=== PATIENT | male | born 1985 | race Caucasian/White ===

== ENCOUNTER 2017-01-26 00:02 | Emergency (ER) | payer OTHER ==
[2017-01-26] MEDS ORDERED: Ketorolac Tromethamine 30 MG/ML VIAL ONE (00:34)
[2017-01-26] MEDS ORDERED: Morphine 4 MG/ML Carpuject ONE (00:34)
[2017-01-26 00:37] LABS: Bilirubin Negative (Negative); Blood, Urine Negative (Negative); Glucose, Urine (Dipstick) Negative (Negative); Ketone, Urine Negative (Negative); Nitrite Negative (Negative); Protein, Urine (Dipstick) 30 mg/dL (Neg-Trace); Urobilinogen 0.2 mg/dL (0.2-1.0)
[2017-01-26 00:46] LABS: Bacteria/HPF None Seen HPF (None Seen); Hyaline Casts/LPF NONE SEEN LPF (0-3 Hyaline); RBC/HPF 0-3 HPF (0-3); Squamous Epithelial 0-3 HPF (0-3); WBC/HPF 0-3 HPF (0-3)
[2017-01-26] MEDS ORDERED: HYDROcodone/Acetaminophen 5/325 mg Tablet ONE (01:11)
== END 2017-01-26 01:59 | disposition home or self-care (01) ==
LOC: SCSER 00:02
DX: N23 Unspecified renal colic (principal); K58.9 Irritable bowel syndrome, unspecified; Z87.442 Personal history of urinary calculi
CPT/HCPCS: 81003; 81015; 96361; 96374; 96375; J1885; J2270

== ENCOUNTER 2017-03-24 16:07 | Emergency (ER) | payer OTHER | END 2017-03-24 17:18 | disposition home or self-care (01) | LOC: SCSER 16:07 | DX: J32.9 Chronic sinusitis, unspecified (principal); Z79.899 Other long term (current) drug therapy | CPT/HCPCS: 99283 ==

== ENCOUNTER 2017-03-31 23:31 | Emergency (ER) | payer OTHER ==
[2017-03-31 23:52] LABS: Bilirubin Negative (Negative); Blood, Urine Trace (Negative); Clarity Clear (Clear); Glucose, Urine (Dipstick) Negative (Negative); Leukocyte Negative (Negative); Nitrite Negative (Negative); Protein, Urine (Dipstick) 100 mg/dL (Neg-Trace); Urobilinogen 0.2 mg/dL (0.2-1.0)
[2017-03-31 23:53] LABS: Specific Gravity, Urine 1.037 (1.002-1.036)
[2017-03-31 23:55] LABS: Bacteria/HPF None Seen HPF (None Seen); Hyaline Casts/LPF 0-3 HYALINE CAST LPF (0-3 Hyaline); RBC/HPF 0-3 HPF (0-3); Squamous Epithelial 0-3 HPF (0-3); WBC/HPF 0-3 HPF (0-3)
[2017-04-01] MEDS ORDERED: Morphine 4 MG/ML Carpuject ONE (00:16)
[2017-04-01 00:35] LABS: ALT (SGPT) 38 U/L (8-55); AST (SGOT) 19 U/L (5-34); Anion Gap 14 mmol/L (10-20); BUN (Urea Nitrogen) 13 mg/dL (8.9-20.6); Bilirubin, Total 0.2 mg/dL (0.2-1.2); Calc. Creatinine Clearance 0 mL/min (70-130); Calcium 9.6 mg/dL (7.8-10.44); Carbon Dioxide 26 mmol/L (22-29); Chloride 106 mmol/L (98-107); Estimated GFR-MDRD Greater than 90; Globulin 3.3 g/dL (2.4-3.5); Glucose 113 mg/dL (70-105); Lipase 32 U/L (8-78); Potassium 3.6 mmol/L (3.5-5.1); Protein, Total 7.3 g/dL (6.0-8.3); Sodium 142 mmol/L (136-145)
[2017-04-01 00:36] LABS: #Basophils 0.1 thou/uL (0.0-0.2); #Eosinphils 0.3 thou/uL (0.0-0.7); #Lymphocytes 2.7 thou/uL (1.20-3.40); #Monocytes 0.8 thou/uL (0.11-0.59); #Neutrophils 5.6 thou/uL (1.40-6.50); %Basophils 1.2 % (0.0-1.0); %Eosinophils 3.5 % (0.0-10.0); %Lymphocytes 28.5 % (21.0-51.0); %Monocytes 7.9 % (0.0-10.0); %Neutrophils 59.1 % (42.0-75.0); Hemoglobin 13.1 g/dL (14.0-18.0); Mean Corpuscular HGB CONC 32.2 g/dL (32.0-36.0); Mean Corpuscular Hemoglobin 25.9 pg (27.0-31.0); Mean Corpuscular Volume 80.5 fl (80.0-94.0); Mean Platelet Volume 10.8 fL (7.4-10.4); Platelet Count 245 thou/uL (130-400); RBC Distribution Width 14.9 % (11.5-14.5); Red Blood Cell (RBC) Count 5.04 mill/uL (4.70-6.10); White Blood Cell (WBC) Count 9.5 thou/uL (4.8-10.8)
[2017-04-01 03:11] LABS: Alkaline Phosphatase 72 U/L (40-150)
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
== END 2017-04-01 01:34 | disposition home or self-care (01) ==
LOC: SCSER 23:31
DX: M54.9 Dorsalgia, unspecified (principal)
CPT/HCPCS: 74176; 80053; 81003; 81015; 83690; 85025; 96361; 96374; J2270

== ENCOUNTER 2017-04-03 21:06 | Emergency (ER) | payer OTHER ==
[2017-04-03 21:57] LABS: #Basophils 0.1 thou/uL (0.0-0.2); #Eosinphils 0.3 thou/uL (0.0-0.7); #Lymphocytes 3.1 thou/uL (1.20-3.40); #Monocytes 0.6 thou/uL (0.11-0.59); %Eosinophils 2.7 % (0.0-10.0); %Lymphocytes 25.4 % (21.0-51.0); %Monocytes 5.1 % (0.0-10.0); %Neutrophils 65.9 % (42.0-75.0); Mean Corpuscular HGB CONC 31.8 g/dL (32.0-36.0); Mean Corpuscular Hemoglobin 25.8 pg (27.0-31.0); Mean Corpuscular Volume 81.2 fl (80.0-94.0); Mean Platelet Volume 10.9 fL (7.4-10.4); Platelet Count 262 thou/uL (130-400); RBC Distribution Width 14.8 % (11.5-14.5); Red Blood Cell (RBC) Count 5.03 mill/uL (4.70-6.10); White Blood Cell (WBC) Count 12.1 thou/uL (4.8-10.8)
[2017-04-03 22:13] LABS: ALT (SGPT) 41 U/L (8-55); AST (SGOT) 22 U/L (5-34); Albumin 4.1 g/dL (3.5-5.0); Alkaline Phosphatase 70 U/L (40-150); Anion Gap 14 mmol/L (10-20); BUN (Urea Nitrogen) 11 mg/dL (8.9-20.6); Bilirubin, Total 0.2 mg/dL (0.2-1.2); Calc. Creatinine Clearance 0 mL/min (70-130); Calcium 9.7 mg/dL (7.8-10.44); Carbon Dioxide 27 mmol/L (22-29); Chloride 103 mmol/L (98-107); Estimated GFR-MDRD 82; Globulin 3.4 g/dL (2.4-3.5); Glucose 138 mg/dL (70-105); Lipase 35 U/L (8-78); Potassium 3.5 mmol/L (3.5-5.1); Protein, Total 7.5 g/dL (6.0-8.3); Sodium 140 mmol/L (136-145)
--- NOTE | 2017-04-03 23:19 | ULT ---
GALLBLADDER ULTRASOUND: 04/03/17 HISTORY: Right upper quadrant pain. Real time imaging of the right upper quadrant demonstrates a contracted appearing gallbladder without any definite signs of stones. Common duct is 4 mm. Technologist reports a negative ultrasound Friedman 's sign. There are fatty changes of the liver which measures 17 cm in length. The pancreas is obscured. Right kidney is normal in size and not obstructed. There is a small subcentimeter cyst present in the mid p ole region. IMPRESSION: 1. Contracted gallbladder. 2. Fatty changes of the liver. POS: [facility]
== END 2017-04-03 23:32 | disposition home or self-care (01) ==
LOC: SCSER 21:06
DX: K76.0 Fatty (change of) liver, not elsewhere classified (principal); M19.90 Unspecified osteoarthritis, unspecified site; Z87.442 Personal history of urinary calculi; Z79.899 Other long term (current) drug therapy
CPT/HCPCS: 76705; 80053; 83690; 85025; 87086

== ENCOUNTER 2017-04-10 14:25 | Outpatient (CLI) | payer OTHER ==
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
== END 2017-04-10 14:26 | disposition home or self-care (01) ==
LOC: SCSRAD 14:25
PROVIDERS: ATTEND Family Medicine
DX: M54.5 Low back pain (principal)
CPT/HCPCS: 72100

== ENCOUNTER 2017-05-02 17:27 | Emergency (ER) | payer OTHER ==
[2017-05-02] MEDS ORDERED: Ketorolac Tromethamine 30 MG/ML VIAL ONE (18:25)
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
== END 2017-05-02 18:50 | disposition home or self-care (01) ==
LOC: SCSER 17:27
DX: S16.1XXA Strain of muscle, fascia and tendon at neck level, initial encounter (principal); K58.9 Irritable bowel syndrome, unspecified; M19.90 Unspecified osteoarthritis, unspecified site; Z87.442 Personal history of urinary calculi; V43.92XA Unspecified car occupant injured in collision with other type car in traffic accident, initial encounter
CPT/HCPCS: 72125; 96372; J1885

== ENCOUNTER 2017-07-30 15:31 | Emergency (ER) | payer OTHER ==
[2017-07-30 16:07] LABS: Bilirubin Negative (Negative); Blood, Urine Negative (Negative); Clarity Clear (Clear); Glucose, Urine (Dipstick) Negative (Negative); Leukocyte Negative (Negative); Nitrite Negative (Negative); Protein, Urine (Dipstick) 100 mg/dL (Neg-Trace); Specific Gravity, Urine 1.025 (1.005-1.030); Urobilinogen 0.2 mg/dL (0.2-1.0); pH, Urine 6.5 (5.0-9.0)
[2017-07-30 16:14] LABS: RBC/HPF 0-3 HPF (0-3); Squamous Epithelial 0-3 HPF (0-3)
[2017-07-30 16:15] LABS: Bacteria/HPF Rare-Few HPF (None Seen); Hyaline Casts/LPF 0-3 HYALINE CAST LPF (0-3 Hyaline)
[2017-07-30] MEDS ORDERED: Ketorolac Tromethamine 30 MG/ML VIAL ONE (16:18)
[2017-07-30 16:33] LABS: #Basophils 0.1 thou/uL (0.0-0.2); #Eosinphils 0.2 thou/uL (0.0-0.7); #Lymphocytes 2.7 thou/uL (1.20-3.40); #Monocytes 0.6 thou/uL (0.11-0.59); #Neutrophils 4.6 thou/uL (1.40-6.50); %Basophils 1.2 % (0.0-1.0); %Eosinophils 2.6 % (0.0-10.0); %Lymphocytes 32.8 % (21.0-51.0); %Monocytes 6.8 % (0.0-10.0); %Neutrophils 56.6 % (42.0-75.0); Hemoglobin 15.5 g/dL (14.0-18.0); Mean Corpuscular HGB CONC 32.8 g/dL (32.0-36.0); Mean Corpuscular Hemoglobin 27.6 pg (27.0-31.0); Mean Corpuscular Volume 84.2 fl (80.0-94.0); Mean Platelet Volume 10.8 fL (7.4-10.4); Platelet Count 232 thou/uL (130-400); RBC Distribution Width 14.2 % (11.5-14.5); Red Blood Cell (RBC) Count 5.62 mill/uL (4.70-6.10); White Blood Cell (WBC) Count 8.2 thou/uL (4.8-10.8)
[2017-07-30 16:47] LABS: Anion Gap 17 mmol/L (10-20); BUN (Urea Nitrogen) 12 mg/dL (8.9-20.6); Calc. Creatinine Clearance 0 mL/min (70-130); Calcium 10.3 mg/dL (7.8-10.44); Carbon Dioxide 23 mmol/L (22-29); Chloride 103 mmol/L (98-107); Estimated GFR-MDRD Greater than 90; Glucose 92 mg/dL (70-105); Potassium 3.5 mmol/L (3.5-5.1); Sodium 139 mmol/L (136-145)
[2017-07-30 16:59] LABS: ALT (SGPT) 63 U/L (8-55); AST (SGOT) 31 U/L (5-34); Albumin 4.6 g/dL (3.5-5.0); Alkaline Phosphatase 71 U/L (40-150); Bilirubin, Direct 0.2 mg/dL (0.1-0.3); Bilirubin, Total 0.6 mg/dL (0.2-1.2); Lipase 34 U/L (8-78); Protein, Total 8.2 g/dL (6.0-8.3)
--- NOTE | 2017-07-30 17:39 | CT ---
ABDOMEN CT WITHOUT CONTRAST: PELVIS CT WITHOUT CONTRAST: HISTORY: Left flank pain. Back pain. Dysuria. COMPARISON: 10/06/2016 and 04/01/2017 TECHNIQUE: A CT of the abdomen and pelvis is performed without contrast. Coronal reformatted images are submitt ed for interpretation. FINDINGS; ABDOMEN: The lung bases are clear. The heart size is normal. No pericardia effusion. The visualiz ed aorta is normal in caliber. The gallbladder is unremarkable. Hepatic steatosis is noted. Evaluation of the solid organs is limited by lack of IV contrast. No so lid organ abnormality. No gastrohepatic, retrocrural, or periportal lymphadenopathy. No mesenteric mass, lymphadenopathy, free air, or free fluid. Limited evaluation of the solid organs due to lack of oral contrast. No evidence of bowel obstructio n. The ileocecal junction is normal. Normal caliber appendix. Fecal material in a nondistended, no ndilated colon. Scattered diverticulosis. No diverticulitis. Bilaterally, no nephrolithiasis or significant perinephric fat stranding. Subtle hypodensity in the right renal cortex is again noted. Previously noted punctate calcification in the right intrarenal c ollecting system is not appreciated. With regard to the right intrarenal and extrarenal collecting s ystem, no evidence of obstructive uropathy. With regard to the left intrarenal and extrarenal collec ting system, no evidence of obstructive uropathy. PELVIS: No mass, lymphadenopathy, free air, or free fluid. The urinary bladder is unremarkable. No lytic or blastic lesions in the osseous structures. IMPRESSION: 1. No evidence of obstructive uropathy. 2. Normal caliber appendix. POS: [facility]
== END 2017-07-30 17:21 | disposition home or self-care (01) ==
LOC: SCSER 15:31
DX: N30.00 Acute cystitis without hematuria (principal)
CPT/HCPCS: 74176; 80048; 80076; 81003; 81015; 83690; 85025; 96374; J1885

== ENCOUNTER 2017-08-24 09:30 | Emergency (ER) | payer OTHER ==
[2017-08-24 10:10] LABS: #Basophils 0.1 thou/uL (0.0-0.2); #Eosinphils 0.3 thou/uL (0.0-0.7); #Lymphocytes 2.6 thou/uL (1.20-3.40); #Monocytes 0.9 thou/uL (0.11-0.59); #Neutrophils 4.8 thou/uL (1.40-6.50); %Eosinophils 3.2 % (0.0-10.0); %Lymphocytes 29.9 % (21.0-51.0); %Monocytes 9.9 % (0.0-10.0); Hemoglobin 14.5 g/dL (14.0-18.0); Mean Corpuscular HGB CONC 32.5 g/dL (32.0-36.0); Mean Corpuscular Hemoglobin 28.7 pg (27.0-31.0); Mean Corpuscular Volume 88.2 fL (78.0-98.0); Platelet Count 223 thou/uL (130-400); Red Blood Cell (RBC) Count 5.05 mill/uL (4.70-6.10); White Blood Cell (WBC) Count 8.6 thou/uL (4.8-10.8)
[2017-08-24 10:12] LABS: Bilirubin Negative (Negative); Blood, Urine Negative (Negative); Clarity CLEAR (Clear); Glucose, Urine (Dipstick) Negative (Negative); Leukocyte Negative (Negative); Nitrite Negative (Negative); Protein, Urine (Dipstick) 100 mg/dL (Neg-Trace); Specific Gravity, Urine 1.023 (1.002-1.036); Urobilinogen 0.2 mg/dL (0.2-1.0); pH, Urine 5.5 (5.0-9.0)
[2017-08-24 10:16] LABS: BHCG - Serum Negative; Pregs Control Background? CLEAR/WHITE (CLR/WHITE); Pregs Control Bar Appear? YES (CONTROL BAR)
[2017-08-24 10:19] LABS: Bacteria/HPF None Seen HPF (None Seen); Hyaline Casts/LPF 0-3 HYALINE CAST LPF (0-3 Hyaline); Pathc Cast-AUWi Flag 0.29 (0-2.49); RBC/HPF 0-3 HPF (0-3); Squamous Epithelial None Seen HPF (0-3)
[2017-08-24 10:23] LABS: ALT (SGPT) 47 U/L (8-55); AST (SGOT) 24 U/L (5-34); Albumin 4.3 g/dL (3.5-5.0); Alkaline Phosphatase 70 U/L (40-150); Anion Gap 14 mmol/L (10-20); BUN (Urea Nitrogen) 12 mg/dL (8.9-20.6); Bilirubin, Total 0.2 mg/dL (0.2-1.2); Calc. Creatinine Clearance 0 mL/min (70-130); Calcium 9.8 mg/dL (7.8-10.44); Carbon Dioxide 25 mmol/L (22-29); Chloride 104 mmol/L (98-107); Estimated GFR-MDRD 79; Globulin 3.6 g/dL (2.4-3.5); Glucose 109 mg/dL (70-105); Potassium 3.7 mmol/L (3.5-5.1); Protein, Total 7.9 g/dL (6.0-8.3); Sodium 139 mmol/L (136-145)
== END 2017-08-24 12:12 | disposition home or self-care (01) ==
LOC: ERS 09:30
DX: R42 Dizziness and giddiness (principal); K58.9 Irritable bowel syndrome, unspecified; M19.90 Unspecified osteoarthritis, unspecified site; Z87.442 Personal history of urinary calculi; Z79.899 Other long term (current) drug therapy; N18.1 Chronic kidney disease, stage 1; R80.9 Proteinuria, unspecified
CPT/HCPCS: 36415; 80053; 81003; 81015; 82570; 83970; 84156; 84166; 84703; 85025; 87086; 93005

== ENCOUNTER 2017-10-14 03:30 | Emergency (ER) | payer OTHER | END 2017-10-14 04:42 | disposition home or self-care (01) | LOC: SCSER 03:30 | DX: K08.89 Other specified disorders of teeth and supporting structures (principal); M19.90 Unspecified osteoarthritis, unspecified site | CPT/HCPCS: 93005 ==

== ENCOUNTER 2017-11-16 22:13 | Emergency (ER) | payer OTHER ==
[2017-11-16] MEDS ORDERED: EPINEPHrine 1 MG/ML AMP ONE (22:24)
[2017-11-16] MEDS ORDERED: Water For Inject, Bacteriostat 30 ML ONE (22:25)
[2017-11-16] MEDS ORDERED: methylPREDNISolone Sod Succ/PF 125 MG/2 ML VIAL ONE (22:25)
[2017-11-16] MEDS ORDERED: diphenhydrAMINE 50 MG/ML VIAL ONE (22:25)
[2017-11-16] MEDS ORDERED: Famotidine/PF 20 mg/2ml Vial ONE (22:25)
== END 2017-11-16 23:48 | disposition home or self-care (01) ==
LOC: SCSER 22:13
DX: T78.40XA Allergy, unspecified, initial encounter (principal)
CPT/HCPCS: 96374; 96375; J0171; J1200; J2930; S0028

== ENCOUNTER 2018-01-28 17:57 | Emergency (ER) | payer OTHER ==
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
== END 2018-01-28 19:06 | disposition home or self-care (01) ==
LOC: SCSER 17:57
DX: M67.431 Ganglion, right wrist (principal); M19.90 Unspecified osteoarthritis, unspecified site; K58.9 Irritable bowel syndrome, unspecified; Z87.442 Personal history of urinary calculi; Z79.899 Other long term (current) drug therapy; W22.8XXA Striking against or struck by other objects, initial encounter

== ENCOUNTER 2018-03-20 15:30 | Emergency (ER) | payer OTHER ==
[2018-03-20 15:58] LABS: Bilirubin Negative (Negative); Blood, Urine Large (Negative); Clarity Slightly Cloudy (Clear); Glucose, Urine (Dipstick) Negative (Negative); Leukocyte Negative (Negative); Nitrite Negative (Negative); Protein, Urine (Dipstick) 100 mg/dL (Neg-Trace); Urobilinogen 0.2 mg/dL (0.2-1.0); pH, Urine 6.5 (5.0-9.0)
[2018-03-20 16:03] LABS: RBC/HPF 21-50 HPF (0-3); Squamous Epithelial 0-3 HPF (0-3); WBC/HPF 0-3 HPF (0-3)
[2018-03-20 16:04] LABS: Crystals/HPF 1+ AMORPH URATES HPF (Negative)
[2018-03-20 16:09] LABS: #Basophils 0.1 thou/uL (0.0-0.2); #Eosinphils 0.2 thou/uL (0.0-0.7); #Lymphocytes 2.4 thou/uL (1.20-3.40); #Monocytes 0.6 thou/uL (0.11-0.59); #Neutrophils 4.7 thou/uL (1.40-6.50); %Basophils 1.3 % (0.0-1.0); %Lymphocytes 29.9 % (21.0-51.0); %Monocytes 6.9 % (0.0-10.0); %Neutrophils 58.8 % (42.0-75.0); Hemoglobin 14.4 g/dL (14.0-18.0); Mean Corpuscular HGB CONC 32.6 g/dL (32.0-36.0); Mean Corpuscular Hemoglobin 29.5 pg (27.0-31.0); Mean Corpuscular Volume 90.6 fL (78.0-98.0); Platelet Count 193 thou/uL (130-400); RBC Distribution Width 13.7 % (11.5-14.5); Red Blood Cell (RBC) Count 4.87 mill/uL (4.70-6.10); White Blood Cell (WBC) Count 8.1 thou/uL (4.8-10.8)
[2018-03-20 16:23] LABS: ALT (SGPT) 61 U/L (8-55); AST (SGOT) 31 U/L (5-34); Alkaline Phosphatase 67 U/L (40-150); Anion Gap 13 mmol/L (10-20); BUN (Urea Nitrogen) 14 mg/dL (8.9-20.6); Bilirubin, Total 0.3 mg/dL (0.2-1.2); Calc. Creatinine Clearance 0 mL/min (70-130); Calcium 9.2 mg/dL (7.8-10.44); Carbon Dioxide 25 mmol/L (22-29); Chloride 104 mmol/L (98-107); Estimated GFR-MDRD Greater than 90; Globulin 3.2 g/dL (2.4-3.5); Glucose 96 mg/dL (70-105); Potassium 3.3 mmol/L (3.5-5.1); Protein, Total 7.2 g/dL (6.0-8.3); Sodium 139 mmol/L (136-145)
--- NOTE | 2018-03-20 17:26 | CT ---
CT ABDOMEN AND PELVIS NONCONTRAST 03/20/18 HISTORY: Left flank pain. COMPARISON: 04/01/17. FINDINGS: Each renal collecting system, ureter, and the urinary bladder are decompressed without stone evident. Lack of contrast limits evaluation for other abnormalities. Liver is diffusely hypodense. Occasional diverticula arise from the colon without adjacent inflammation. IMPRESSION: No CT evidence of urinary tract obstruction or calcification. Hepatic steatosis. Mild diverticulosis. No evidence of diverticulitis. POS: [facility]
== END 2018-03-20 16:43 | disposition home or self-care (01) ==
LOC: SCSER 15:30
DX: M54.5 Low back pain (principal); R31.9 Hematuria, unspecified; K58.9 Irritable bowel syndrome, unspecified; M19.90 Unspecified osteoarthritis, unspecified site; Z87.442 Personal history of urinary calculi; Z79.899 Other long term (current) drug therapy
CPT/HCPCS: 74176; 80053; 81003; 81015; 85025

== ENCOUNTER 2018-05-01 18:34 | Emergency (ER) | payer OTHER | END 2018-05-01 19:09 | disposition home or self-care (01) | LOC: SCSER 18:34 | DX: M54.5 Low back pain (principal); G89.29 Other chronic pain; K58.9 Irritable bowel syndrome, unspecified; M19.90 Unspecified osteoarthritis, unspecified site; Z87.442 Personal history of urinary calculi; Z79.899 Other long term (current) drug therapy | CPT/HCPCS: 99281 ==

== ENCOUNTER 2018-05-02 13:06 | Outpatient (CLI) | payer OTHER ==
--- NOTE | 2018-05-02 14:28 | ULT ---
RENAL ULTRASOUND: Comparison: 02-14-06 History: History of kidney stones. Technique: Multiplanar grayscale and color doppler images were obtained in a bilateral renal ultrasou nd. FINDINGS: There is an echogenic nonshadowing structure in the right kidney measuring 1.1 cm in greatest dimensi on. There is also an echogenic structure in the left kidney measuring 7 mm in greatest dimension. The se could represent nonobstructing pneumo calcifications. There is no evidence of hydronephrosis on ei ther side. The kidneys measure 11.8 and 12.7 cm in length respectively. Limited visualization of the urinary bladder is unremarkable. IMPRESSION: Bilateral nonobstructing kidney stones. POS: [facility]
== END 2018-05-02 13:07 | disposition home or self-care (01) ==
LOC: SCSULT 13:06
PROVIDERS: ATTEND Urology
DX: N20.0 Calculus of kidney (principal)
CPT/HCPCS: 76770

== ENCOUNTER 2018-05-17 10:25 | Outpatient (CLI) | payer OTHER ==
--- NOTE | 2018-05-17 12:23 | RAD ---
KUB: HISTORY: Renal calculi. COMPARISON: A 05/09/2016 examination as well as a 03/20/2018 CT study. FINDINGS: The bowel gas pattern appears nonobstructive. I do not identify any definite renal calculi. There a re calcifications in the pelvis which are felt to represent phleboliths. IMPRESSION: No definite renal calculi. POS: [facility]
== END 2018-05-17 10:26 | disposition home or self-care (01) ==
LOC: RAD 10:25
PROVIDERS: ATTEND Urology
DX: N20.0 Calculus of kidney (principal)
CPT/HCPCS: 74018

== ENCOUNTER 2018-12-06 06:07 | Emergency (ER) | payer OTHER ==
[2018-12-06] MEDS ORDERED: Ketorolac Tromethamine 30 MG/ML VIAL ONE (06:24)
[2018-12-06 06:35] LABS: #Basophils 0.1 thou/uL (0.0-0.2); #Eosinphils 0.3 thou/uL (0.0-0.7); #Monocytes 0.9 thou/uL (0.11-0.59); #Neutrophils 6.8 thou/uL (1.40-6.50); %Basophils 1.3 % (0.0-1.0); %Eosinophils 2.3 % (0.0-10.0); %Lymphocytes 27.2 % (21.0-51.0); %Monocytes 7.8 % (0.0-10.0); %Neutrophils 61.4 % (42.0-75.0); Hemoglobin 15.4 g/dL (14.0-18.0); Mean Corpuscular HGB CONC 31.6 g/dL (32.0-36.0); Mean Corpuscular Hemoglobin 26.7 pg (27.0-31.0); Mean Corpuscular Volume 84.4 fL (78.0-98.0); Mean Platelet Volume 10.4 fL (7.4-10.4); Platelet Count 230 thou/uL (130-400); RBC Distribution Width 15.8 % (11.5-14.5); Red Blood Cell (RBC) Count 5.75 mill/uL (4.70-6.10)
[2018-12-06 06:40] LABS: Bilirubin Moderate (Negative); Blood, Urine Negative (Negative); Clarity Clear (Clear); Glucose, Urine (Dipstick) Negative (Negative); Leukocyte Negative (Negative); Nitrite Negative (Negative); Protein, Urine (Dipstick) 100 mg/dL (Neg-Trace); Urobilinogen 0.2 mg/dL (Less than 2)
[2018-12-06 06:45] LABS: ALT (SGPT) 51 U/L (8-55); AST (SGOT) 25 U/L (5-34); Albumin 4.5 g/dL (3.5-5.0); Alkaline Phosphatase 65 U/L (40-110); Anion Gap 16 mmol/L (10-20); BUN (Urea Nitrogen) 11 mg/dL (8.9-20.6); Bilirubin, Total 0.6 mg/dL (0.2-1.2); Calc. Creatinine Clearance 0 mL/min (70-130); Calcium 9.9 mg/dL (7.8-10.44); Carbon Dioxide 28 mmol/L (22-29); Chloride 101 mmol/L (98-107); Estimated GFR-MDRD 65; Globulin 3.4 g/dL (2.4-3.5); Glucose 98 mg/dL (70-105); Lipase 44 U/L (8-78); Potassium 3.1 mmol/L (3.5-5.1); Protein, Total 7.9 g/dL (6.0-8.3); Sodium 142 mmol/L (136-145)
[2018-12-06 06:49] LABS: Bacteria/HPF None Seen HPF (None Seen); RBC/HPF None Seen HPF (0-3); Squamous Epithelial None Seen HPF (0-3); WBC/HPF None Seen HPF (0-3)
== END 2018-12-06 07:13 | disposition home or self-care (01) ==
LOC: SCSER 06:07
DX: R10.9 Unspecified abdominal pain (principal); E78.5 Hyperlipidemia, unspecified; I10 Essential (primary) hypertension; Z79.899 Other long term (current) drug therapy
CPT/HCPCS: 74177; 76700; 80053; 81003; 81015; 83605; 83690; 85025; 96360; 96374; J1885; Q9967

== ENCOUNTER 2018-12-06 13:42 | Emergency (ER) | payer OTHER ==
[~2018-12-06 13:42] MED LIST: Iopamidol 300 61% 100 ML VIAL FS ONE
[2018-12-06 14:55] LABS: Mean Corpuscular HGB CONC 32.4 g/dL (32.0-36.0); Mean Corpuscular Hemoglobin 26.9 pg (27.0-31.0); Mean Platelet Volume 12.2 fL (7.4-10.4); Platelet Count 225 thou/uL (130-400); RBC Distribution Width 15.7 % (11.5-14.5); Red Blood Cell (RBC) Count 5.58 mill/uL (4.70-6.10); White Blood Cell (WBC) Count 11.2 thou/uL (4.8-10.8)
[2018-12-06 15:04] LABS: ALT (SGPT) 47 U/L (8-55); AST (SGOT) 24 U/L (5-34); Albumin 4.3 g/dL (3.5-5.0); Alkaline Phosphatase 65 U/L (40-110); Anion Gap 15 mmol/L (10-20); BUN (Urea Nitrogen) 14 mg/dL (8.9-20.6); Bilirubin, Total 0.4 mg/dL (0.2-1.2); Calc. Creatinine Clearance 0 mL/min (70-130); Carbon Dioxide 26 mmol/L (22-29); Chloride 103 mmol/L (98-107); Estimated GFR-MDRD 67; Globulin 3.2 g/dL (2.4-3.5); Glucose 105 mg/dL (70-105); Lipase 37 U/L (8-78); Protein, Total 7.5 g/dL (6.0-8.3); Sodium 141 mmol/L (136-145)
[2018-12-06 15:06] LABS: #Basophils 0.1 thou/uL (0.0-0.2); #Eosinphils 0.2 thou/uL (0.0-0.7); #Lymphocytes 2.7 thou/uL (1.20-3.40); #Monocytes 0.8 thou/uL (0.11-0.59); #Neutrophils 7.4 thou/uL (1.40-6.50); %Basophils 1.1 % (0.0-1.0); %Lymphocytes 23.7 % (21.0-51.0); %Monocytes 7.3 % (0.0-10.0); %Neutrophils 65.9 % (42.0-75.0); Large Platelets SLIGHT; MDiff Complete? YES; Platelet Morphology Comment Appears Adequate; RBC Morphology Normal
[2018-12-06 15:08] LABS: Potassium 2.9 mmol/L (3.5-5.1)
--- NOTE | 2018-12-06 16:17 | ULT ---
ABDOMINAL ULTRASOUND HISTORY: Right lower quadrant abdominal pain. FINDINGS: Liver: Increased echogenicity and coarsened echotexture most suggestive of diffuse fatty infiltration . This does limit evaluation of the hepatic parenchyma, no definite focal hepatic lesion is seen. Gallbladder: Contracted and not well evaluated on this exam. Gallbladder calculi could not be exclude d based on this exam. Common duct: Common duct is normal in caliber measuring 4 mm in diameter. Pancreas: The limited visualized pancreas demonstrates a normal sonographic appearance. IVC: Limited visualized IVC has a normal sonographic appearance. Aorta: Normal in caliber where visualized. Spleen: Within normal limits. Kidneys: The right kidney measures 11.5 cm in length. A subcentimeter hypoechoic lesion is seen in th e midportion right kidney which is difficult to characterize but probably represents a small cyst. Hypodense lesion was seen in this region on prior CT scan examination in 2017. The left kidney demons trates a normal sonographic appearance and measures 13.3 cm in length. There is no hydronephrosis seen bilaterally. Limited sonographic evaluation of the right lower quadrant was performed. The appendix is not definit pradeep visualized. No fluid is seen in the right lower quadrant. IMPRESSION: 1. Gallbladder is contracted and not evaluated on this exam. Follow-up ultrasound examination after a n appropriate time period of fasting can be performed if there is concern for gallbladder pathology. The common duct is normal in caliber. 2. Diffuse fatty infiltration of the liver limiting evaluation of the hepatic parenchyma. 3. Hypoechoic subcentimeter lesion midportion right kidney difficult to definitively characterize due to small size but likely represents a small cyst. Small hypoechoic lesion was seen in this region on prior noncontrast CT abdomen 2017. 4. The appendix is not definitely visualized in the right lower quadrant. No fluid is seen in the rig ht lower quadrant. Appendicitis cannot be excluded based on this exam.
[2018-12-06 16:57] LABS: Bilirubin Small (Negative); Blood, Urine Negative (Negative); Clarity Hazy (Clear); Glucose, Urine (Dipstick) Negative (Negative); Leukocyte Negative (Negative); Nitrite Negative (Negative); Protein, Urine (Dipstick) 30 mg/dL (Neg-Trace); Urobilinogen 0.2 mg/dL (Less than 2)
--- NOTE | 2018-12-06 17:35 | CT ---
CT CHEST, ABDOMEN AND PELVIS WITH IV CONTRAST: 12/06/18 Oral contrast was administered. Multiplanar reconstruction. INDICATIONS: Right lower quadrant abdominal pain. Lung bases clear. Liver, spleen and pancreas unremarkable. Stomach and duodenum unremarkable. Adrenal glands normal. Kidneys unremarkable. A small cyst in the mid pole of the right kidney is noted and stable from prior exam of 03/20/18. No hydronephrosis. No evidence of urinary tract calculus or obstruction. Urinary bladder is contracted and not well evaluated. Small bowel loops appear normal. Appendix appears normal with no evidence of inflammation. Colon is unremarkable. Aorta normal caliber . No adenopathy. Review of soft tissues shows mild prominence of the right inguinal ring. This is filled with mesenter ic fat and does suggest a small inguinal hernia on the right. IMPRESSION: No acute abnormality identified. POS: [facility]
== END 2018-12-06 18:48 | disposition home or self-care (01) ==
LOC: SCSER 13:42
DX: K40.90 Unilateral inguinal hernia, without obstruction or gangrene, not specified as recurrent (principal); E87.6 Hypokalemia; E78.5 Hyperlipidemia, unspecified; I10 Essential (primary) hypertension; Z79.899 Other long term (current) drug therapy
CPT/HCPCS: 74177; 76700; 83605; 83690

== ENCOUNTER 2019-01-07 12:44 | Outpatient (CLI) | payer OTHER ==
--- NOTE | 2019-01-07 13:46 | MRI ---
MRI Lumbar Spine WO Con HISTORY: Low back pain. COMPARISON: MRI study of 05/19/2010. FINDINGS: The vertebral bodies are normal in height. Disc desiccation changes are seen at L3-4, L4-5 and L5-S1. There is no significant periaortic adenopathy. The visualized portions of the kidneys appear unremarkable. T12-L1: Unremarkable L1-2: Unremarkable L2-3: Unremarkable. L3-4 there is a disc bulge at this level there is a small central annular disc tear present no signif icant canal or foraminal stenosis. L4-5 there is a right paracentral annular disc tear and disc protrusion these changes indent the thec al sac. In the conjunction with facet and ligamentous hypertrophic changes cause a moderate degree of canal narrowing. There is no significant foraminal stenosis. The right foramen is borderline narro wed. L5-S1: A central annular tear is present at this level the canal is borderline in what appears to mitch ewhat congenitally narrowed canal. There are degenerative facet changes at this level. IMPRESSION: 1. Small central annular disc tear at L3-4. 2. Right paracentral annular tear and disc protrusion at L4-5 with a mild to moderate degree of canal stenosis and borderline right foraminal narrowing. 3. Central annular disc tear at L5-S1.
--- NOTE | 2019-01-07 13:49 | RAD ---
XR Lumbar Spine 2 Or 3 View HISTORY: Low back pain COMPARISON: 04/10/2017 study FINDINGS: The vertebral bodies maintain normal height. Degenerative osteophytic changes in the lower lumbar spine is seen without significant disc narrowing. Mild degenerative facet changes of the lower lumbar spine are present. IMPRESSION: Mild arthritic changes of the spine.
== END 2019-01-07 12:45 | disposition home or self-care (01) ==
LOC: BICMRI 12:44
PROVIDERS: ATTEND Family Medicine
DX: M47.816 Spondylosis without myelopathy or radiculopathy, lumbar region (principal); M51.26 Other intervertebral disc displacement, lumbar region; M48.061 Spinal stenosis, lumbar region without neurogenic claudication
CPT/HCPCS: 72100; 72148

== ENCOUNTER 2019-01-17 06:50 | Outpatient (CLI) | payer OTHER ==
[2019-01-17 12:51] LABS: #Basophils 0.1 thou/uL (0.0-0.2); #Eosinphils 0.2 thou/uL (0.0-0.7); #Lymphocytes 2.9 thou/uL (1.20-3.40); #Monocytes 0.6 thou/uL (0.11-0.59); %Eosinophils 2.3 % (0.0-10.0); %Lymphocytes 33.1 % (21.0-51.0); %Monocytes 7.3 % (0.0-10.0); %Neutrophils 56.4 % (42.0-75.0); Hemoglobin 14.8 g/dL (14.0-18.0); Mean Corpuscular HGB CONC 32.7 g/dL (32.0-36.0); Mean Corpuscular Hemoglobin 28.2 pg (27.0-31.0); Mean Corpuscular Volume 86.3 fL (78.0-98.0); Mean Platelet Volume 10.2 fL (7.4-10.4); Platelet Count 206 thou/uL (130-400); RBC Distribution Width 14.8 % (11.5-14.5); Red Blood Cell (RBC) Count 5.24 mill/uL (4.70-6.10); White Blood Cell (WBC) Count 8.8 thou/uL (4.8-10.8)
[2019-01-17 13:09] LABS: Anion Gap 9 mmol/L (10-20); BUN (Urea Nitrogen) 12 mg/dL (8.9-20.6); Calc. Creatinine Clearance 0 mL/min (70-130); Calcium 9.3 mg/dL (7.8-10.44); Carbon Dioxide 28 mmol/L (22-29); Chloride 107 mmol/L (98-107); Estimated GFR-MDRD 77; Glucose 88 mg/dL (70-105); Potassium 4.2 mmol/L (3.5-5.1); Sodium 140 mmol/L (136-145)
--- NOTE | 2019-01-19 16:24 | EKG ---
Test Reason : Blood Pressure : / mmHG Vent. Rate : 069 BPM Atrial Rate : 069 BPM P-R Int : 160 ms QRS Dur : 080 ms QT Int : 370 ms P-R-T Axes : 043 088 041 degrees QTc Int : 396 ms Normal sinus rhythm Normal ECG When compared with ECG of 14-OCT-2017 04:15, No significant change was found Confirmed by DR. Serafin YEBOAH ([id number]) on 01/19/2019 4:23:49 PM Referred By: MAUREEN Confirmed By:DR. Serafin YEBOAH
== END 2019-01-17 06:51 | disposition home or self-care (01) ==
LOC: LABBT 06:50
PROVIDERS: ATTEND Specialist
DX: Z01.818 Encounter for other preprocedural examination (principal); K40.90 Unilateral inguinal hernia, without obstruction or gangrene, not specified as recurrent
CPT/HCPCS: 80048; 85025; 93005; 93010

== ENCOUNTER 2019-01-24 05:36 | Day surgery (SDC) | payer OTHER ==
[2019-01-17 12:08] VITALS: BMI 34.4
--- NOTE | 2019-01-20 10:39 | HP ---
HISTORY OF PRESENT ILLNESS: Miguel Ángel Montenegro is a 33-year-old male patient, who has a history of leukemia, in remission. He was told he had a right inguinal hernia on exam in 2009; however, it was asymptomatic since that time. He is having discomfort in his right groin. He recently presented to the emergency room at [facility] in 06/2018 for discomfort in his right groin. CAT scan revealed a small right inguinal hernia, but no other acute findings. Abdominal ultrasound was unremarkable. He has had a past history of nephrolithiasis. Plan is for robotic mesh repair of right inguinal hernia as an outpatient. He understands risks and benefits of procedure and consents. He understand risks of infection, bleeding, reoperation, and chronic pain. MEDICATIONS: 1. Coral p.r.n. 2. Valium. 3. Tylenol p.r.n. 4. Nasonex. 5. Nexium. 6. Propranolol 10 mg a day. 7. Hydrochlorothiazide daily. PAST MEDICAL HISTORY: 1. Acute lymphocytic leukemia in 1991, status post chemo and radiation therapy. 2. He is on disability for learning disability. 3. ADHD. 4. Multiple kidney stones. 5. IBS. 6. GERD. 7. Nephrolithiasis. PAST SURGICAL HISTORY: 1. Tonsillectomy. 2. Lithotripsy. 3. Street catheter placement in the past. 4. Hemorrhoidectomy that I performed in 2016. HABITS: Tobacco, none. Alcohol, none. ALLERGIES: PHENERGAN, REGLAN, ZOFRAN, CIPRO. CIPRO CAUSES GI CRAMPS. ZOFRAN, HALLUCINATIONS. REGLAN, HYPERACTIVITY. PHENERGAN, HE LISTS THE REACTION RESPIRATORY FAILURE. PHYSICAL EXAMINATION: GENERAL: 222 pounds, 67 inches, 35 BMI, blood pressure 109/78, heart rate 70, and temperature 96.8 degrees. HEAD, EARS, EYES, NOSE, AND THROAT: Unremarkable. LUNGS: Clear to auscultation. CARDIAC: Regular rate and rhythm without murmur or gallop. ABDOMEN: Soft and nontender. Testicles normal. EXTREMITIES: Unremarkable exam on standing. Left groin without hernia. Right groin reveals an inguinal hernia. ASSESSMENT AND PLAN: Right inguinal hernia. He understands risks and benefits of surgery and consents the robot mesh repair of right inguinal hernia and left inguinal hernia if present. Job ID: [id number]
[2019-01-24] MEDS ORDERED: Lidocaine 1% w/Epinephrine 1:100K 20 ML VIAL ONE (06:49)
[2019-01-24] MEDS ORDERED: Bupivacaine PF 0.5% 30 ML VIAL ONE (06:49)
[2019-01-24] MEDS ORDERED: Fentanyl 250 MCG/5 ML VIAL ONE (06:53)
[2019-01-24] MEDS ORDERED: Midazolam HCl 2 mg/2 ml Vial ONE (06:53)
[2019-01-24] MEDS ORDERED: Ketorolac Tromethamine 30 MG/ML VIAL ONE (07:05)
[2019-01-24] MEDS ORDERED: Fentanyl 100 MCG/2 ML VIAL ONE ×2 (09:26→09:44)
[2019-01-24] MEDS ORDERED: Glycopyrrolate 0.2 MG/ML 5 ML SYRINGE ONE (10:37)
[2019-01-24] MEDS ORDERED: Rocuronium Bromide 10 MG/ML (10ML VIAL) ONE (10:37)
[2019-01-24] MEDS ORDERED: PROPOFOL 200 MG/20 ML VIAL ONE (10:37)
--- NOTE | 2019-01-24 10:58 | OP ---
DATE OF PROCEDURE: 01/24/2019 PREOPERATIVE DIAGNOSIS: Right inguinal hernia. POSTOPERATIVE DIAGNOSIS: Right inguinal hernia. PROCEDURE PERFORMED: 3D Bard max large mesh robot repair right inguinal hernia, indirect. ANESTHESIA: General, local 0.5% Marcaine 30 mL mixed with 1% Xylocaine with epinephrine 30 mL, 40 mL volume mixture used. DESCRIPTION OF PROCEDURE: The patient was taken to the operating room, where under general anesthesia, Diamond catheter was placed at the beginning of the procedure and removed at the end. Abdomen was clipped of hair, prepared with ChloraPrep and draped in routine fashion. Local anesthetic was infiltrated in the skin and subcutaneous tissue about each port site. Left paramedian transverse skin incision was made just above the umbilicus, carried down to skin and subcutaneous tissue and Veress needle established. Pneumoperitoneum to 15 mmHg placed in the Veress needle with an 11 balloon port in bilateral far lateral. Mid abdominal incision was made, and 8 mm port was placed. Robot was docked and positioned, and robotic inguinal hernia repair undertaken. Peritoneal flap was dissected free from the anterior superior iliac spine on the right to the midline after identifying an indirect large hernia sac defect. Dissection was carried down to the pubis medially and laterally to the retroperitoneum, preserving the inferior epigastric vessels as the hernia sac dissected free from the inguinal canal and fatty tissue dissected free positioning the mesh over the retroperitoneum, securing it to the Luis ligament with interrupted 3-0 Vicryl and to the anterior abdominal wall just to the patient's right of the inferior epigastric vessels. Once properly positioned, the peritoneal flap was closed with continuous suture of #3-0 Stratafix. Hernia sac had been positioned behind the peritoneum. Good hemostasis noted. The patient tolerated the procedure well without complications, left side without hernia. Pneumoperitoneum irrigant evacuated and left paramedian anterior rectus fascia was approximated with 0 Vicryl GraNee needle and all skin incisions were approximated with subdermal 4-0 Monocryl and [place] glue applied. Job ID: [id number]
[2019-01-24] MEDS ORDERED: HYDROcodone/Acetaminophen 5/325 mg Tablet ONE ×2 (12:09→13:38)
== END 2019-01-24 14:35 | disposition home or self-care (01) ==
LOC: SDC 05:36
PROVIDERS: ATTEND Specialist
PROC: 0YU50JZ Supplement Right Inguinal Region with Synthetic Substitute, Open Approach (ICD-10-PCS; principal; 2019-01-24)
DX: K40.90 Unilateral inguinal hernia, without obstruction or gangrene, not specified as recurrent (principal); C91.01 Acute lymphoblastic leukemia, in remission; F90.9 Attention-deficit hyperactivity disorder, unspecified type; K21.9 Gastro-esophageal reflux disease without esophagitis; K58.9 Irritable bowel syndrome, unspecified; F81.9 Developmental disorder of scholastic skills, unspecified; Z79.899 Other long term (current) drug therapy; Z88.1 Allergy status to other antibiotic agents; Z88.8 Allergy status to other drugs, medicaments and biological substances
CPT/HCPCS: C1781; J0131; J0690; J1885; J2250; J2704; J3010; S0020

== ENCOUNTER 2019-03-26 22:03 | Emergency (ER) | payer OTHER ==
--- NOTE | 2019-03-27 08:06 | RAD ---
EXAM: Chest PA and lateral: HISTORY: Cough COMPARISON: 04/25/2016 FINDINGS: Heart: Normal cardiac silhouette Aorta: Unremarkable Pulmonary vessels: Normal Costophrenic angles: Costophrenic angles are clear. Lungs: No consolidation or masses. Pneumothorax: No pneumothorax Osseous structures: No osseous abnormalities IMPRESSION: No acute cardiopulmonary process.
== END 2019-03-27 00:13 | disposition home or self-care (01) ==
LOC: ERS 22:03
DX: J06.9 Acute upper respiratory infection, unspecified (principal); I10 Essential (primary) hypertension; E78.5 Hyperlipidemia, unspecified; M19.90 Unspecified osteoarthritis, unspecified site
CPT/HCPCS: 71046; 87804

== ENCOUNTER 2020-05-21 07:40 | Outpatient (CLI) | payer OTHER | END 2020-05-21 07:41 | disposition home or self-care (01) | LOC: BICMRI 07:40 | PROVIDERS: ATTEND Family Medicine | DX: M51.16 Intervertebral disc disorders with radiculopathy, lumbar region (principal); G89.4 Chronic pain syndrome; M47.26 Other spondylosis with radiculopathy, lumbar region | CPT/HCPCS: 72148 ==

== ENCOUNTER 2020-08-31 22:14 | Emergency (ER) | payer OTHER ==
[2020-09-01 00:11] LABS: #Lymphocytes 1.2 thou/uL (1.20-3.40); #Monocytes 0.7 thou/uL (0.11-0.59); #Neutrophils 14.9 thou/uL (1.40-6.50); %Basophils 0.2 % (0.0-1.0); %Eosinophils 0.3 % (0.0-10.0); %Neutrophils 88.5 % (42.0-75.0); Hemoglobin 17.2 g/dL (14.0-18.0); Mean Corpuscular HGB CONC 33.4 g/dL (32.0-36.0); Mean Corpuscular Hemoglobin 31.5 pg (27.0-31.0); Mean Corpuscular Volume 94.4 fL (78.0-98.0); Mean Platelet Volume 9.3 fL (7.4-10.4); Platelet Count 241 thou/uL (130-400); RBC Distribution Width 12.6 % (11.5-14.5); Red Blood Cell (RBC) Count 5.45 mill/uL (4.70-6.10); White Blood Cell (WBC) Count 16.8 thou/uL (4.8-10.8)
[2020-09-01 00:56] LABS: ALT (SGPT) 41 U/L (8-55); AST (SGOT) 18 U/L (5-34); Albumin 4.4 g/dL (3.5-5.0); Alkaline Phosphatase 74 U/L (40-110); Anion Gap 16 mmol/L (10-20); BUN (Urea Nitrogen) 13 mg/dL (8.9-20.6); Bilirubin, Total 0.5 mg/dL (0.2-1.2); Calc. Creatinine Clearance 0 mL/min (70-130); Calcium 10.3 mg/dL (7.8-10.44); Carbon Dioxide 20 mmol/L (22-29); Chloride 104 mmol/L (98-107); Globulin 3.7 g/dL (2.4-3.5); Glucose 213 mg/dL (70-105); Magnesium 1.7 mg/dL (1.6-2.6); Protein, Total 8.1 g/dL (6.0-8.3); Sodium 137 mmol/L (136-145)
[2020-09-01 01:07] LABS: Potassium 2.6 mmol/L (3.5-5.1)
[2020-09-01] MEDS ORDERED: Potassium Chloride 20 MEQ TAB ONE (01:28)
[2020-09-01] MEDS ORDERED: Potassium Chloride 20 MEQ/100 ML PREMIX BAG ONE (01:28)
[2020-09-01] MEDS ORDERED: Magnevist 469MG/ML 20 ML VIAL ONE (09:01)
== END 2020-09-01 04:03 | disposition home or self-care (01) ==
LOC: ERS 22:14
DX: R53.1 Weakness (principal); E87.6 Hypokalemia; E78.5 Hyperlipidemia, unspecified; I10 Essential (primary) hypertension; Z79.899 Other long term (current) drug therapy
CPT/HCPCS: 72158; 80053; 83735; 85025; 85652; 86140; 93005; 96365; 96366; A9579; J3480

== ENCOUNTER 2021-10-12 08:53 | Outpatient (CLI) | payer OTHER | END 2021-10-12 08:54 | disposition home or self-care (01) | LOC: BICULT 08:53 | PROVIDERS: ATTEND Family Medicine | DX: R10.13 Epigastric pain (principal); K76.0 Fatty (change of) liver, not elsewhere classified; N28.1 Cyst of kidney, acquired; R93.2 Abnormal findings on diagnostic imaging of liver and biliary tract | CPT/HCPCS: 76705 ==

== ENCOUNTER 2021-11-02 06:37 | Outpatient (CLI) | payer OTHER | END 2021-11-02 06:38 | disposition home or self-care (01) | LOC: NM 06:37 | PROVIDERS: ATTEND Family Medicine | DX: R10.13 Epigastric pain (principal) | CPT/HCPCS: 78227; A9537 ==

== ENCOUNTER 2023-03-02 10:19 | Outpatient (CLI) | payer OTHER ==
[2023-03-02 12:02] LABS: Bilirubin Neg (Negative); Blood, Urine 250 (Negative); Glucose, Urine (Dipstick) Normal (Negative); Ketone, Urine 5 mg/dL (Negative); Leukocyte 500 (Negative); Nitrite Negative (Negative); Protein, Urine (Dipstick) 500 mg/dl (Neg-Trace); Specific Gravity, Urine 1.015 (1.005-1.030); Urobilinogen Normal mg/dL (Less than 2)
[2023-03-02 12:07] LABS: Clarity Hazy (Clear); Hematocrit 48.1 % (38.8-50.0); Mean Corpuscular HGB CONC 33.3 g/dL (32.0-36.0); Mean Corpuscular Hemoglobin 29.8 pg (27.0-33.0); Mean Corpuscular Volume 89.6 fl (81.2-95.1); Mean Platelet Volume 11.5 fl (7.4-10.4); Platelet Count 237 10x3/uL (150-450); RBC Distribution Width 13.2 % (11.5-14.5); Red Blood Cell (RBC) Count 5.37 10x6/uL (4.32-5.72); White Blood Cell (WBC) Count 7.6 10x3/uL (3.5-10.5)
[2023-03-02 12:10] LABS: Bacteria/HPF 1+ HPF (None Seen); RBC/HPF Greater than 50 HPF (0-3)
[2023-03-02 12:12] LABS: Anion Gap 13 mmol/L (10-20); BUN (Urea Nitrogen) 12 mg/dL (8.9-20.6); Calc. Creatinine Clearance 0 mL/min (70-130); Calcium 9.2 mg/dL (7.8-10.44); Carbon Dioxide 29 mmol/L (22-29); Chloride 104 mmol/L (98-107); Estimated GFR 100; Glucose 91 mg/dL (70-105); Sodium 142 mmol/L (136-145)
[2023-03-02 12:15] LABS: INR-International Normal Ratio 0.9; PTT 28.7 sec (22.0-33.0); Prothrombin Time 9.9 sec (9.5-12.1)
== END 2023-03-02 10:20 | disposition home or self-care (01) ==
LOC: LABBT 10:19
PROVIDERS: ATTEND Urology
DX: Z01.818 Encounter for other preprocedural examination (principal); N20.1 Calculus of ureter
CPT/HCPCS: 80048; 81001; 85027; 85610; 85730; 87086; 93005; 93010

== ENCOUNTER 2023-04-23 13:31 | Outpatient (CLI) | payer OTHER | END 2023-04-23 13:32 | disposition home or self-care (01) | LOC: BICULT 13:31 | PROVIDERS: ATTEND Urology | DX: N20.0 Calculus of kidney (principal) | CPT/HCPCS: 36415; 76770; 82670; 84270; 84403; 85014; 85018 ==